=== PATIENT | female | born 1955 | race Caucasian/White ===

== ENCOUNTER 2018-02-21 23:26 | Emergency (ER) | payer BC, OTHER ==
[~2018-02-21] VITALS: Ht 162.6 cm; Wt 158.8 kg
[2018-02-21] MEDS ORDERED: FLUOXETINE HCL20 MG PO (23:43)
[2018-02-21] MEDS ORDERED: SIMVASTATIN40 MG PO (23:43)
[2018-02-21] MEDS ORDERED: BUPROPION HCL150 M2 PO (23:43)
[2018-02-21] MEDS ORDERED: LISINOPRIL10 MG PO (23:43)
[2018-02-21] MEDS ORDERED: PANTOPRAZOLE SO40 MG PO (23:43)
[2018-02-21] MEDS ORDERED: METFORMIN HCL500 MG PO (23:43)
[2018-02-21] MEDS ORDERED: GLIPIZIDE5 MG PO (23:43)
[2018-02-21] MEDS ORDERED: MORPHINE SULFATE 2 MG/ML SYR IV STA (23:50)
[2018-02-21] MEDS ORDERED: PANTOPRAZOLE 40 MG 10ML VIAL IV STA (23:50)
[2018-02-22] MEDS ORDERED: DICYCLOMINE HCL 20 MG/2 ML VIAL IM ONE
[2018-02-22] MEDS ORDERED: SODIUM CHLORIDE 0.9% 1000ML 1,000 ML IV ONE
[2018-02-22 00:20] LABS: BASOPHILS % 0.3 % (0.0-1.0); EOSINOPHILS % 0.3 % (0.0-6.0); HEMATOCRIT 42.2 % (34.2-44.1); HEMOGLOBIN 13.8 g/dL (12.0-16.0); LYMPHOCYTES # (AUTO) 0.7 (1.0-3.2); LYMPHOCYTES % 5.4 % (18.0-39.1); MEAN CORPUSCULAR HEMOGLOBIN 28.6 pg (28-32); MEAN CORPUSCULAR HGB CONC 32.7 g/dL (31-35); MEAN CORPUSCULAR VOLUME 87.4 fL (81-99); MONOCYTES # (AUTO) 0.6 (0.2-0.8); MONOCYTES % 4.7 % (4.4-11.3); NEUTROPHILS # (AUTO) 10.9 (2.1-6.9); NEUTROPHILS % 88.9 % (38.7-80.0); PLATELET COUNT 306 x10e3/uL (140-360); RED BLOOD COUNT 4.83 x10e6/uL (3.6-5.1)
[2018-02-22] MEDS ORDERED: MORPHINE SULFATE INJ 4 MG/ML INJ ONE (00:32)
[2018-02-22] MEDS ORDERED: DIATRIZOATE MEGL/DIATRIZOA SOD 30 ML BTL PO ONE (00:32)
[2018-02-22 00:48] LABS: ALANINE AMINOTRANSFERASE 12 IU/L (0-55); ALBUMIN 3.4 g/dL (3.5-5.0); ALKALINE PHOSPHATASE 69 IU/L (40-150); AMYLASE 33 U/L (25-125); BLOOD UREA NITROGEN 12 mg/dL (7-26); BUN/CREATININE RATIO 13 (6-25); CARBON DIOXIDE 23 mmol/L (22-29); CREATININE, SERUM 0.92 mg/dL (0.57-1.11); EST GLOMERULAR FILTRATION RATE > 60 ML/MIN (60-); GLUCOSE 191 mg/dL (74-118); LIPASE 15 U/L (8-78)
[2018-02-22 00:50] LABS: ANION GAP 18.5 mmol/L (8-16); CHLORIDE 104 mmol/L (98-107); POTASSIUM 3.5 mmol/L (3.5-5.1); SODIUM 142 mmol/L (136-145)
[2018-02-22] MEDS ORDERED: SODIUM CHLORIDE 0.9% 50ML 50 ML ONE (01:26)
[2018-02-22] MEDS ORDERED: IOPAMIDOL 370 MG/ML 200 ML INFUS..BTL INJ ONE (01:26)
[2018-02-22 02:08] LABS: CLARITY,URINE SL CLOUDY (CLEAR); COLOR,URINE YELLOW (YELLOW); KETONES,URINE TRACE (NEGATIVE); LEUKOCYTE ESTERASE ,URINE TRACE (NEGATIVE); NITRITE,URINE POSITIVE (NEGATIVE); PROTEIN,URINE DIPSTICK NEGATIVE (NEGATIVE); URINE UROBILINOGEN 1 mg/dL (0.2 - 1)
[2018-02-22 02:09] LABS: BILIRUBIN,URINE NEGATIVE (NEGATIVE)
--- NOTE | 2018-02-22 02:15 | Diagnostic Imaging Report ---
EXAM: CT ABDOMEN/PELVIS W DATE: 02/22/2018 11:50 PM INDICATION: ^ABD PAIN. VOMITING/DIARRHEA ^[id number] ^[id number] ^Y COMPARISON: None TECHNIQUE: The abdomen and pelvis were scanned using a multidetector helical scanner. Coronal and sagittal reformations were obtained. CT low dose techniques were utilized, as applicable. IV Contrast: 100 ml Isovue 300/370 FINDINGS: Evaluation is somewhat degraded by streak artifact/photon starvation related to body habitus. LOWER THORAX: No consolidations LIVER: No masses. GALLBLADDER: Mild extrahepatic biliary ductal dilation postcholecystectomy SPLEEN: Unremarkable PANCREAS: Unremarkable ADRENALS: No nodules KIDNEYS: No suspicious renal masses. Focal left superior pelvocaliectasis or parapelvic cyst without ureterectasis. GI TRACT: Small hiatal hernia. Mild fluid-filled small bowel and right colon. No wall thickening or evidence of obstruction. Scattered diverticula. Normal appendix. VESSELS: Mild atherosclerotic changes PERITONEUM/RETROPERITONEUM: Trace pelvic free fluid. No free air. LYMPH NODES: No lymphadenopathy REPRODUCTIVE ORGANS/BLADDER: Unremarkable SOFT TISSUES: Prior right ventral abdominal hernia repair. Rectus muscle diastases. BONES: Multilevel degenerative changes. IMPRESSION: Findings which can be seen with mild enterocolitis. Otherwise no acute abnormality. Signed by: Dr Tisha Colmenares MD on 02/22/2018 2:12 AM
[2018-02-22 02:28] LABS: BACTERIA,URINE MANY /HPF; EPITHELIAL CELLS,URINE MANY /LPF; RBC,URINE 0-5 /HPF (0-5); WBC,URINE (MAN) 21-50 /HPF (0-5)
== END 2018-02-22 02:50 | disposition other institution (70) ==
LOC: ER 23:26
DX: K58.0 Irritable bowel syndrome with diarrhea (principal); K21.9 Gastro-esophageal reflux disease without esophagitis; I10 Essential (primary) hypertension; E11.65 Type 2 diabetes mellitus with hyperglycemia; Z79.84 Long term (current) use of oral hypoglycemic drugs
CPT/HCPCS: 36415; 74177; 80053; 81001; 82150; 83690; 85025; 93005; 96374; 96375; 99284; J0500; J2270; J7030; Q9663; Q9967

== ENCOUNTER 2020-04-11 17:58 | Emergency (ER) | payer MEDICARE ==
[~2020-04-11] VITALS: Ht 162.6 cm; Wt 158.8 kg
[~2020-04-11 17:58] MED LIST: BUPROPION HCL150 M2 PO; FLUOXETINE HCL20 MG PO; GLIPIZIDE5 MG PO; LISINOPRIL10 MG PO; METFORMIN HCL500 MG PO; PANTOPRAZOLE SO40 MG PO; SIMVASTATIN40 MG PO
[2020-04-11] MEDS ORDERED: IBUPROFEN 600 MG TAB PO STA (18:15)
[2020-04-11] MEDS ORDERED: HYDROCODONE/APAP 5MG-325MG TAB PO ONE (18:15)
[2020-04-11] MEDS ORDERED: DEXAMETHASONE 4 MG TAB PO STA (19:17)
[2020-04-11] MEDS ORDERED: ULTRAM50 MG PO (20:10)
[2020-04-11 22:08] VITALS: BP 141/86
== END 2020-04-11 21:45 | disposition home or self-care (01) ==
LOC: ER 18:05
DX: M25.561 Pain in right knee (principal); M17.11 Unilateral primary osteoarthritis, right knee; I10 Essential (primary) hypertension; E11.9 Type 2 diabetes mellitus without complications; K21.9 Gastro-esophageal reflux disease without esophagitis; K58.9 Irritable bowel syndrome, unspecified
CPT/HCPCS: 73562; 99283; J8540